=== PATIENT | female | born 1995 | race Caucasian/White ===

== ENCOUNTER 2020-05-23 18:08 | Inpatient (IN) | payer MEDICAID ==
[~2020-05-23] VITALS: Ht 170.2 cm; Wt 81.8 kg
[2020-05-23] MEDS ORDERED: buprenorphine/naloxone 8MG-2MG SUBlingual film SL STA ×2 (21:45→23:06)
[2020-05-23 22:53] LABS: BASOPHILS # (AUTO) 0.1 X10'3 (0-0.2); BASOPHILS % (AUTO) 0.7 % (0-1); EOSINOPHILS # (AUTO) 0.1 X10'3 (0-0.9); EOSINOPHILS % (AUTO) 0.7 % (0-6); HEMATOCRIT 34.2 % (35.0-45.0); HEMOGLOBIN 11.1 g/dl (12.0-16.0); LYMPHOCYTES # (AUTO) 2.3 X10'3 (1.1-4.8); MEAN CORPUSCULAR HEMOGLOBIN 25.1 PG (27.0-31.0); MEAN CORPUSCULAR HGB CONC 32.5 g/dL (33.0-36.5); MEAN CORPUSCULAR VOLUME 77.1 FL (78-98); MEAN PLATELET VOLUME 8.5 FL (7.4-10.4); MONOCYTES # (AUTO) 0.4 X10'3 (0-0.9); MONOCYTES % (AUTO) 3.3 % (2-12); NEUTROPHILS # (AUTO) 8.2 X10'3 (1.8-7.7); NEUTROPHILS % (AUTO) 74.3 % (42-75); PLATELET COUNT 354 X10'3 (140-440); RED BLOOD COUNT 4.43 X10'6 (4.20-5.60); RED CELL DISTRIBUTION WIDTH 15.6 % (11.5-14.5)
[2020-05-23 23:11] LABS: ALANINE AMINOTRANSFERASE 18 U/L (12-78); ALBUMIN 3.2 G/DL (3.4-5.0); ALBUMIN/GLOBULIN RATIO 0.8 (1.1-1.5); ALKALINE PHOSPHATASE 81 IU/L (46-116); ANION GAP 11 (8-16); ASPARTATE AMINO TRANSFERASE 14 U/L (10-37); BILIRUBIN,TOTAL 0.3 MG/DL (0.1-1.0); BLOOD UREA NITROGEN 8 MG/DL (7-18); BUN/CREATININE RATIO 12.9 (6.6-38.0); CALCIUM 8.7 MG/DL (8.5-10.1); CHLORIDE 106 MMOL/L (99-107); CREATININE 0.62 MG/DL (0.40-0.90); GLUCOSE 97 MG/DL (70-104); POTASSIUM 3.7 MMOL/L (3.5-5.1); SODIUM 141 MMOL/L (135-145); TOTAL CARBON DIOXIDE 23.9 MMOL/L (24-32); TOTAL PROTEIN 7.2 G/DL (6.4-8.2); eGFR > 90 ML/MIN
[2020-05-23] MEDS ORDERED: normal saline 1000ML IV soln IVB ONE (23:15)
[2020-05-23] MEDS ORDERED: vancomycin/NS 1 GM ADD-VANTAGE 250 ML IV ONE (23:15)
[2020-05-23] MEDS ORDERED: piperacillin/tazo 3.375gm/50ml 50 ML IV ONE (23:15)
[2020-05-24] MEDS ORDERED: mag hydrox/Alum hydrox/simeth 30ml oral suspension PO PRN (02:10)
[2020-05-24] MEDS ORDERED: ipratropium/albuterol 3ml nebule NEB PRN (02:10)
[2020-05-24] MEDS ORDERED: magnesium 2GM in 50ml NS 50 ML IV PRN (02:10)
[2020-05-24] MEDS ORDERED: magnesium Cl slow-release 64mg tablet PO PRN (02:10)
[2020-05-24] MEDS ORDERED: potassium CL 10mEq/100ml bag 100 ML IV PRN ×2 (02:10)
[2020-05-24] MEDS ORDERED: potassium Cl 20 mEq SR tablet PO PRN ×2 (02:10)
[2020-05-24] MEDS ORDERED: magnesium 4gm in 100ml NS 100 ML IV PRN (02:10)
[2020-05-24] MEDS ORDERED: acetaminophen 325mg tablet PO PRN (02:10)
[2020-05-24] MEDS ORDERED: magnesium hydroxide 30ml (MOM) UD suspension PO PRN (02:10)
[2020-05-24] MEDS ORDERED: ondansetron/PF 4mg/2ml inj IV PRN (02:10)
[2020-05-24] MEDS ORDERED: vancomycin inj 500 MG in normal saline 100ml IV soln 100 ML IV ONE (02:30)
[2020-05-24 04:05] VITALS: BP 129/81
--- NOTE | 2020-05-24 04:05 | NUR ---
PATIENT ADMITTED TO ROOM 354A FROM ER FOR RIGHT HAND CELLULITIS. PLACED COMFORTABLE IN BED. VITAL SIGNS TAKEN AND RECORDED.
[2020-05-24] MEDS: normal saline 1000ml 1,000 ML IV SCH ×4 (04:10→23:11)
--- NOTE | 2020-05-24 06:25 | NUR ---
Problems reprioritized. Patient report given, questions answered & plan of care reviewed with LISA QUIROZ.
--- NOTE | 2020-05-24 06:30 | NUR ---
Patient in room [facility]. I have received report from GABRIELLA Baig and had the opportunity to ask questions and assume patient care.
[2020-05-24 07:00] VITALS: BP 134/69
[2020-05-24] MEDS: piperacillin/tazo 4.5gm/100ml 100 ML IV SCH ×2 (07:46→20:21)
[2020-05-24] MEDS: buprenorphine/naloxone 8MG-2MG SUBlingual film SL SCH (07:46)
[2020-05-24] MEDS: K and/or MAG REPLACEMENT MC SCH ×2 (08:00→20:00)
[2020-05-24] MEDS ORDERED: pneumococcal 23-VAL P-sac vacc 25 mcg/0.5ml vial IMVAC ONE (10:00)
[2020-05-24] MEDS ORDERED: BUPR1FIL3 SL (10:01)
[2020-05-24 12:00] VITALS: BP 105/63
[2020-05-24] MEDS: VANCOmycin 1250MG/NS 250ml Bag 250 ML IV SCH ×3 (13:00→23:10)
--- NOTE | 2020-05-24 15:38 | NUR ---
Notified Glo in pharmacy that Vanco dose delayed due to loosing IV. Advised to run as soon as able then run zosyn.
[2020-05-24] MEDS ORDERED: GADOTERATE MEGLUMINE 7.5 MMOL/15 ML VIAL IV ONE (16:49)
[2020-05-24] MEDS ORDERED: HYDROcodone/acetaminophen 10/325mg tab PO PRN ×2 (17:20)
--- NOTE | 2020-05-24 18:00 | NUR ---
Problems reprioritized. Patient report given, questions answered & plan of care reviewed with Mandi Rosa RN.
[2020-05-24 19:27] VITALS: BP 117/74
[2020-05-24] MEDS: lactobacillus rhamnosus 10,000 MMU CELLS/CAPSULE PO SCH (20:21)
--- NOTE | 2020-05-24 22:32 | NUR ---
Spoke with Gerson in pharmacy. Stated Vanco was given late at 1720 and was due to be given again at 2100. Also Zosyn was given late at 2020 and scheduled to be given again at 0000. Both medications are to be administered q8. States no need to retime, need to catch up with both to bring levels of medication back up.
[2020-05-25] VITALS: BP 116/79
[2020-05-25] MEDS: piperacillin/tazo 4.5gm/100ml 100 ML IV SCH ×3 (01:22→18:12)
--- NOTE | 2020-05-25 05:00 | NUR ---
Lab unable to draw; will retry.
[2020-05-25] MEDS: VANCOmycin 1250MG/NS 250ml Bag 250 ML IV SCH (05:17)
--- NOTE | 2020-05-25 06:07 | NUR ---
Problems reprioritized. Patient report given, questions answered & plan of care reviewed with GABRIELLA Corona.
--- NOTE | 2020-05-25 06:28 | NUR ---
Patient in room [facility]A. I have received report from GABRIELLA ORO and had the opportunity to ask questions and assume patient care.
[2020-05-25 07:00] VITALS: BP 119/77
[2020-05-25] MEDS: buprenorphine/naloxone 8MG-2MG SUBlingual film SL SCH (07:48)
[2020-05-25] MEDS: lactobacillus rhamnosus 10,000 MMU CELLS/CAPSULE PO SCH ×2 (07:49→20:20)
[2020-05-25] MEDS: K and/or MAG REPLACEMENT MC SCH ×2 (08:00→20:00)
[2020-05-25 09:01] LABS: BASOPHILS # (AUTO) 0.1 X10'3 (0-0.2); BASOPHILS % (AUTO) 0.9 % (0-1); EOSINOPHILS # (AUTO) 0.3 X10'3 (0-0.9); EOSINOPHILS % (AUTO) 3.2 % (0-6); HEMATOCRIT 30.4 % (35.0-45.0); HEMOGLOBIN 10.1 g/dl (12.0-16.0); LYMPHOCYTES # (AUTO) 2.5 X10'3 (1.1-4.8); LYMPHOCYTES % (AUTO) 29.5 % (21-51); MEAN CORPUSCULAR HEMOGLOBIN 25.8 PG (27.0-31.0); MEAN CORPUSCULAR HGB CONC 33.1 g/dL (33.0-36.5); MEAN PLATELET VOLUME 8.1 FL (7.4-10.4); MONOCYTES # (AUTO) 0.4 X10'3 (0-0.9); MONOCYTES % (AUTO) 4.4 % (2-12); NEUTROPHILS # (AUTO) 5.3 X10'3 (1.8-7.7); PLATELET COUNT 288 X10'3 (140-440); RED CELL DISTRIBUTION WIDTH 15.9 % (11.5-14.5); WHITE BLOOD COUNT 8.6 X10'3 (4.5-11.0)
[2020-05-25 09:10] LABS: ALANINE AMINOTRANSFERASE 14 U/L (12-78); ALBUMIN 2.8 G/DL (3.4-5.0); ALBUMIN/GLOBULIN RATIO 0.8 (1.1-1.5); ALKALINE PHOSPHATASE 62 IU/L (46-116); ANION GAP 10 (8-16); ASPARTATE AMINO TRANSFERASE 11 U/L (10-37); BILIRUBIN,TOTAL 0.4 MG/DL (0.1-1.0); BLOOD UREA NITROGEN 7 MG/DL (7-18); BUN/CREATININE RATIO 9.2 (6.6-38.0); CALCIUM 8.1 MG/DL (8.5-10.1); CHLORIDE 109 MMOL/L (99-107); CREATININE 0.76 MG/DL (0.40-0.90); GLUCOSE 93 MG/DL (70-104); MAGNESIUM 1.6 MG/DL (1.5-2.4); POTASSIUM 3.5 MMOL/L (3.5-5.1); SODIUM 143 MMOL/L (135-145); TOTAL CARBON DIOXIDE 23.8 MMOL/L (24-32); TOTAL PROTEIN 6.2 G/DL (6.4-8.2); eGFR > 90 ML/MIN
[2020-05-25 11:00] VITALS: BP 100/72
[2020-05-25] MEDS ORDERED: VANCOMYCIN LEVEL IV ONE (12:30)
[2020-05-25] MEDS: normal saline 1000ml 1,000 ML IV SCH (14:06)
[2020-05-25] MEDS: ketorolac trometh. 30mg/ml inj. IV PRN (14:07)
[2020-05-25] MEDS: vancomycin/NS 1 GM ADD-VANTAGE 250 ML IV SCH ×2 (14:08→20:20)
--- NOTE | 2020-05-25 18:10 | NUR ---
Problems reprioritized. Patient report given, questions answered & plan of care reviewed with GABRIELLA ORO.
--- NOTE | 2020-05-25 18:22 | NUR ---
Patient in room [facility]. I have received report from GABRIELLA Corona and had the opportunity to ask questions and assume patient care.
[2020-05-25 19:13] VITALS: BP 118/78
--- NOTE | 2020-05-25 21:19 | NUR ---
Pt has developed rash on left hand, is not reddened or warm, patient states it itches. Received order from .
[2020-05-25] MEDS: diphenhydrAMINE 25mg capsule PO PRN (21:38)
[2020-05-25 23:46] VITALS: BP 116/68
[2020-05-26] MEDS: vancomycin/NS 1 GM ADD-VANTAGE 250 ML IV SCH ×3 (05:03→20:32)
[2020-05-26 05:59] LABS: BASOPHILS # (AUTO) 0.1 X10'3 (0-0.2); BASOPHILS % (AUTO) 0.6 % (0-1); EOSINOPHILS # (AUTO) 0.4 X10'3 (0-0.9); EOSINOPHILS % (AUTO) 4.2 % (0-6); HEMATOCRIT 31.4 % (35.0-45.0); HEMOGLOBIN 10.4 g/dl (12.0-16.0); LYMPHOCYTES # (AUTO) 3.5 X10'3 (1.1-4.8); LYMPHOCYTES % (AUTO) 37.8 % (21-51); MEAN CORPUSCULAR HEMOGLOBIN 25.4 PG (27.0-31.0); MEAN CORPUSCULAR VOLUME 77.1 FL (78-98); MEAN PLATELET VOLUME 8.3 FL (7.4-10.4); MONOCYTES # (AUTO) 0.5 X10'3 (0-0.9); MONOCYTES % (AUTO) 5.9 % (2-12); NEUTROPHILS # (AUTO) 4.8 X10'3 (1.8-7.7); NEUTROPHILS % (AUTO) 51.5 % (42-75); PLATELET COUNT 304 X10'3 (140-440); RED BLOOD COUNT 4.08 X10'6 (4.20-5.60); RED CELL DISTRIBUTION WIDTH 15.9 % (11.5-14.5); WHITE BLOOD COUNT 9.3 X10'3 (4.5-11.0)
[2020-05-26 06:18] LABS: ALANINE AMINOTRANSFERASE 16 U/L (12-78); ALBUMIN 2.9 G/DL (3.4-5.0); ALBUMIN/GLOBULIN RATIO 0.8 (1.1-1.5); ALKALINE PHOSPHATASE 59 IU/L (46-116); ANION GAP 10 (8-16); ASPARTATE AMINO TRANSFERASE 11 U/L (10-37); BILIRUBIN,TOTAL 0.3 MG/DL (0.1-1.0); BLOOD UREA NITROGEN 6 MG/DL (7-18); BUN/CREATININE RATIO 6.6 (6.6-38.0); CALCIUM 8.5 MG/DL (8.5-10.1); CHLORIDE 108 MMOL/L (99-107); CREATININE 0.91 MG/DL (0.40-0.90); GLUCOSE 91 MG/DL (70-104); MAGNESIUM 1.8 MG/DL (1.5-2.4); POTASSIUM 3.7 MMOL/L (3.5-5.1); SODIUM 142 MMOL/L (135-145); TOTAL CARBON DIOXIDE 24.1 MMOL/L (24-32); TOTAL PROTEIN 6.6 G/DL (6.4-8.2); eGFR 74 ML/MIN
--- NOTE | 2020-05-26 06:29 | NUR ---
Problems reprioritized. Patient report given, questions answered & plan of care reviewed with GABRIELLA Corona.
--- NOTE | 2020-05-26 06:31 | NUR ---
Patient in room [facility]A. I have received report from GABRIELLA ORO and had the opportunity to ask questions and assume patient care.
[2020-05-26 07:00] VITALS: BP 117/72
[2020-05-26] MEDS: K and/or MAG REPLACEMENT MC SCH ×2 (08:00→20:00)
[2020-05-26] MEDS: buprenorphine/naloxone 8MG-2MG SUBlingual film SL SCH (08:59)
[2020-05-26] MEDS: lactobacillus rhamnosus 10,000 MMU CELLS/CAPSULE PO SCH ×2 (09:00→20:32)
[2020-05-26] MEDS: piperacillin/tazo 4.5gm/100ml 100 ML IV SCH ×2 (09:00)
[2020-05-26] MEDS ORDERED: LIDOcaine 1% w/epiNEPHrine 1:200,000 30ml vial SQ ONE (10:10)
[2020-05-26 11:00] VITALS: BP 108/67
[2020-05-26] MEDS ORDERED: VANCOMYCIN LEVEL IV ONE (12:30)
--- NOTE | 2020-05-26 18:42 | NUR ---
Problems reprioritized. Patient report given, questions answered & plan of care reviewed with GABRIELLA ORO.
[2020-05-26 19:58] VITALS: BP 118/82
[2020-05-26] MEDS: ketorolac trometh. 30mg/ml inj. IV PRN (23:18)
--- NOTE | 2020-05-26 23:47 | NUR ---
Patient in room [facility]. I have received report from Mandi Rosa RN and had the opportunity to ask questions and assume patient care. Pt resting comfortably in bed. Just got out of the shower. No signs of distress, will continue to monitor.
--- NOTE | 2020-05-26 23:50 | NUR ---
Problems reprioritized. Patient report given, questions answered & plan of care reviewed with GABRIELLA Perez.
[2020-05-27 00:30] VITALS: BP 134/93
[2020-05-27 05:15] LABS: BASOPHILS # (AUTO) 0.1 X10'3 (0-0.2); BASOPHILS % (AUTO) 0.9 % (0-1); EOSINOPHILS # (AUTO) 0.4 X10'3 (0-0.9); EOSINOPHILS % (AUTO) 3.9 % (0-6); HEMATOCRIT 34.1 % (35.0-45.0); HEMOGLOBIN 11.3 g/dl (12.0-16.0); LYMPHOCYTES # (AUTO) 3.7 X10'3 (1.1-4.8); LYMPHOCYTES % (AUTO) 38.8 % (21-51); MEAN CORPUSCULAR HEMOGLOBIN 25.5 PG (27.0-31.0); MEAN CORPUSCULAR VOLUME 77.1 FL (78-98); MONOCYTES # (AUTO) 0.6 X10'3 (0-0.9); MONOCYTES % (AUTO) 6.1 % (2-12); NEUTROPHILS # (AUTO) 4.8 X10'3 (1.8-7.7); NEUTROPHILS % (AUTO) 50.3 % (42-75); PLATELET COUNT 307 X10'3 (140-440); RED BLOOD COUNT 4.43 X10'6 (4.20-5.60); RED CELL DISTRIBUTION WIDTH 15.9 % (11.5-14.5); WHITE BLOOD COUNT 9.5 X10'3 (4.5-11.0)
[2020-05-27 05:26] LABS: ALANINE AMINOTRANSFERASE 21 U/L (12-78); ALBUMIN 3.1 G/DL (3.4-5.0); ALBUMIN/GLOBULIN RATIO 0.9 (1.1-1.5); ALKALINE PHOSPHATASE 63 IU/L (46-116); ANION GAP 11 (8-16); ASPARTATE AMINO TRANSFERASE 12 U/L (10-37); BILIRUBIN,TOTAL 0.2 MG/DL (0.1-1.0); BLOOD UREA NITROGEN 5 MG/DL (7-18); BUN/CREATININE RATIO 6.8 (6.6-38.0); CALCIUM 8.6 MG/DL (8.5-10.1); CHLORIDE 108 MMOL/L (99-107); CREATININE 0.73 MG/DL (0.40-0.90); GLUCOSE 98 MG/DL (70-104); MAGNESIUM 1.9 MG/DL (1.5-2.4); POTASSIUM 3.8 MMOL/L (3.5-5.1); SODIUM 142 MMOL/L (135-145); TOTAL CARBON DIOXIDE 23.5 MMOL/L (24-32); TOTAL PROTEIN 6.7 G/DL (6.4-8.2); eGFR > 90 ML/MIN
[2020-05-27] MEDS: vancomycin/NS 1 GM ADD-VANTAGE 250 ML IV SCH ×3 (05:30→22:16)
--- NOTE | 2020-05-27 06:35 | NUR ---
Problems reprioritized. Patient report given, questions answered & plan of care reviewed with Thao QUIROZ.
--- NOTE | 2020-05-27 06:48 | NUR ---
Patient in room [facility]. I have received report from Ana QUIROZ and had the opportunity to ask questions and assume patient care.
[2020-05-27 07:00] VITALS: BP 106/74
[2020-05-27] MEDS: K and/or MAG REPLACEMENT MC SCH ×2 (08:00→20:00)
[2020-05-27] MEDS: buprenorphine/naloxone 8MG-2MG SUBlingual film SL SCH (08:46)
[2020-05-27] MEDS: lactobacillus rhamnosus 10,000 MMU CELLS/CAPSULE PO SCH ×2 (08:46→19:41)
[2020-05-27 12:25] VITALS: BP 95/64
[2020-05-27] MEDS: diphenhydrAMINE 25mg capsule PO PRN ×2 (14:46→22:16)
[2020-05-27] MEDS: normal saline 1000ml 1,000 ML IV SCH (14:46)
--- NOTE | 2020-05-27 18:45 | NUR ---
Problems reprioritized. Patient report given, questions answered & plan of care reviewed with Ana QUIROZ.
--- NOTE | 2020-05-27 18:47 | NUR ---
Patient in room [facility]. I have received report from Thao QUIROZ and had the opportunity to ask questions and assume patient care.
[2020-05-27] MEDS: mineral oil/petrolatum, white cream 113gm jar TP SCH (19:42)
[2020-05-27 20:00] VITALS: BP 109/68
[2020-05-28] VITALS: BP 115/74
[2020-05-28] MEDS: vancomycin/NS 1 GM ADD-VANTAGE 250 ML IV SCH (05:08)
[2020-05-28 06:03] LABS: BASOPHILS # (AUTO) 0.1 X10'3 (0-0.2); BASOPHILS % (AUTO) 0.6 % (0-1); EOSINOPHILS # (AUTO) 0.5 X10'3 (0-0.9); EOSINOPHILS % (AUTO) 4.6 % (0-6); HEMATOCRIT 36.2 % (35.0-45.0); LYMPHOCYTES # (AUTO) 4.8 X10'3 (1.1-4.8); LYMPHOCYTES % (AUTO) 47.7 % (21-51); MEAN CORPUSCULAR HGB CONC 33.2 g/dL (33.0-36.5); MEAN CORPUSCULAR VOLUME 78.4 FL (78-98); MEAN PLATELET VOLUME 8.3 FL (7.4-10.4); MONOCYTES # (AUTO) 0.5 X10'3 (0-0.9); NEUTROPHILS # (AUTO) 4.2 X10'3 (1.8-7.7); NEUTROPHILS % (AUTO) 42.1 % (42-75); PLATELET COUNT 319 X10'3 (140-440); RED BLOOD COUNT 4.61 X10'6 (4.20-5.60)
[2020-05-28 06:04] LABS: ALANINE AMINOTRANSFERASE 18 U/L (12-78); ALBUMIN 3.2 G/DL (3.4-5.0); ALBUMIN/GLOBULIN RATIO 0.9 (1.1-1.5); ALKALINE PHOSPHATASE 66 IU/L (46-116); ANION GAP 12 (8-16); ASPARTATE AMINO TRANSFERASE 14 U/L (10-37); BILIRUBIN,TOTAL 0.2 MG/DL (0.1-1.0); BLOOD UREA NITROGEN 6 MG/DL (7-18); BUN/CREATININE RATIO 7.7 (6.6-38.0); CALCIUM 8.6 MG/DL (8.5-10.1); CHLORIDE 108 MMOL/L (99-107); CREATININE 0.78 MG/DL (0.40-0.90); GLUCOSE 83 MG/DL (70-104); MAGNESIUM 1.9 MG/DL (1.5-2.4); SODIUM 143 MMOL/L (135-145); TOTAL CARBON DIOXIDE 23.1 MMOL/L (24-32); TOTAL PROTEIN 6.7 G/DL (6.4-8.2); eGFR 89 ML/MIN
--- NOTE | 2020-05-28 06:36 | NUR ---
Problems reprioritized. Patient report given, questions answered & plan of care reviewed with Shivani QUIROZ.
[2020-05-28] MEDS: buprenorphine/naloxone 8MG-2MG SUBlingual film SL SCH (07:46)
[2020-05-28] MEDS: lactobacillus rhamnosus 10,000 MMU CELLS/CAPSULE PO SCH (07:46)
[2020-05-28 08:00] VITALS: BP 117/75
[2020-05-28] MEDS: K and/or MAG REPLACEMENT MC SCH (08:00)
[2020-05-28] MEDS: mineral oil/petrolatum, white cream 113gm jar TP SCH (08:00)
--- NOTE | 2020-05-28 08:08 | NUR ---
Per lab, pt's Wd Cx = + MRSA. [email or web address] message sent to Dr. Urbina at [phone]. Primary RN, Shivani, was notified.
[2020-05-28] MEDS ORDERED: DOXY-243 PO (11:12)
[2020-05-28 11:44] VITALS: BP 106/73
--- NOTE | 2020-05-28 15:16 | NUR ---
WOUND INFECTION EDUCATION PROVIDED BY [facility]OUND [facility] 1. Patient instructed to call their primary doctor, or go the ED immediately if any of the following symptoms occur: * Increased pain in wound * Increase in drainage from the wound * Redness in the skin surrounding the wound * Warmth in the skin surrounding the wound * Bleeding from the wound * Temperature of 101 or greater 2. If any of these occur while in the hospital tell a nurse immediately. Addendum: 05/28/20 at 1516 by Margoth Mosquera RN Amended: Links added.
== END 2020-05-28 13:27 | disposition home or self-care (01) | DRG 364 ==
LOC: ER 18:08 → ED HOLD 05-24 02:06 → SUR 3N 05-24 04:05
PROVIDERS: ADMIT Family Medicine; ATTEND Internal Medicine
PROC: 0JBJ0ZZ Excision of Right Hand Subcutaneous Tissue and Fascia, Open Approach (ICD-10-PCS; principal; 2020-05-26)
DX: L03.113 Cellulitis of right upper limb (principal); L02.511 Cutaneous abscess of right hand; F41.9 Anxiety disorder, unspecified; Z87.891 Personal history of nicotine dependence
CPT/HCPCS: 36415; 73130; 73223; 76937; 80053; 80202; 83605; 83735; 84145; 85025; 87040; 87070; 87077; 87081; 87186; 94760; 99285; A9575; G0378; J1885; J2543; J3370; J7030; Q0163

== ENCOUNTER 2020-06-04 13:14 | Day surgery (SDC) | payer MEDICAID ==
[~2020-06-04 13:14] MED LIST: BUPR1FIL3 SL; DOXY-243 PO
[2020-06-04] MEDS ORDERED: LIDOcaine 2% 5ml jelly ONE (13:38)
== END 2020-06-04 13:59 | disposition home or self-care (01) ==
LOC: WOUND CARE 13:14
PROVIDERS: ATTEND Nurse Practitioner
DX: T81.89XA Other complications of procedures, not elsewhere classified, initial encounter (principal); L98.492 Non-pressure chronic ulcer of skin of other sites with fat layer exposed; L02.511 Cutaneous abscess of right hand; F17.200 Nicotine dependence, unspecified, uncomplicated; F15.90 Other stimulant use, unspecified, uncomplicated; F41.9 Anxiety disorder, unspecified; Y83.8 Other surgical procedures as the cause of abnormal reaction of the patient, or of later complication, without mention of misadventure at the time of the procedure; Y92.238 Other place in hospital as the place of occurrence of the external cause
CPT/HCPCS: 87070; 87075; 87077; 87102; 87186; 97597